=== PATIENT | male | born 1955 | race Caucasian/White ===

== ENCOUNTER 2019-02-01 23:00 | Inpatient (IN) | payer MEDICARE ==
[~2019-02-01] VITALS: Ht 177.8 cm; Wt 73.4 kg
[~2019-02-01 23:00] MED LIST: ARIP10 PO; BENADRYL PO; DIPH50 PO; DIVA500ER PO; Depakote ER500 MG PO; LEVSOD137 PO; LIDO2L PO; LOXA5 PO; NAPR500 PO; Simvastatin20 MG PO; TERA5 PO
[2019-02-01 23:52] LABS: BASOPHILS ABSOLUTE AUTO 0.02 K/mm3 (0.00-0.23); BASOPHILS PERCENT AUTO 0 % (0-2); EOSINOPHILS ABSOLUTE AUTO 0.01 K/mm3 (0.00-0.68); EOSINOPHILS PERCENT AUTO 0 % (0-6); Hematocrit 44.8 % (37.0-53.0); Hemoglobin 14.9 g/dL (13.5-17.5); IMMATURE GRAN ABSOLUTE AUTO 0.05 K/mm3 (0.00-0.10); IMMATURE GRAN PERCENT AUTO 1 % (0-1); LYMPHOCYTES ABSOLUTE AUTO 0.81 K/mm3 (0.84-5.20); LYMPHOCYTES PERCENT AUTO 9 % (21-46); MONOCYTES ABSOLUTE AUTO 0.81 K/mm3 (0.16-1.47); MONOCYTES PERCENT AUTO 9 % (4-13); Mean Corpuscular HGB Conc 33.3 g/dL (31.5-36.5); Mean Corpuscular Volume 96 fL (80-100); NEUTROPHILS ABSOLUTE AUTO 7.73 K/mm3 (1.96-9.15); NEUTROPHILS PERCENT AUTO 82 % (41-73); Platelet Count 128 K/mm3 (150-400); RDW Standard Deviation 46.2 fL (35.1-46.3); Red Blood Cell Count 4.65 M/mm3 (4.30-5.90); White Blood Cell Count 9.43 K/mm3 (4.00-11.30)
[2019-02-02 00:07] LABS: Albumin, Blood 3.2 g/dL (3.4-5.0); Albumin/Globulin Ratio 0.9 (0.8-1.8); Bilirubin, Total 1.2 mg/dL (0.1-1.0); Bun/Creatinine Ratio 29.6 (12.0-20.0); Calcium, Blood 8.1 mg/dL (8.5-10.1); Creatinine, Blood 1.62 mg/dL (0.60-1.20); Globulin, Blood 3.5 g/dL (2.2-4.0); Potassium, Blood 3.9 mmol/L (3.5-5.5); Total Protein, Blood 6.7 g/dL (6.4-8.2)
[2019-02-02] MEDS ORDERED: Benztropine Me0.5 MG PO (00:09)
[2019-02-02] MEDS ORDERED: LITH300C PO (00:10)
[2019-02-02] MEDS ORDERED: OLAN5 PO (00:11)
[2019-02-02] MEDS ORDERED: OLAN10 PO (00:11)
[2019-02-02] MEDS ORDERED: PALI6TA PO (00:12)
[2019-02-02] MEDS ORDERED: PROP10 PO (00:13)
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
[2019-02-02 08:19] LABS: Calcium, Blood 7.7 mg/dL (8.5-10.1); Creatinine, Blood 1.4 mg/dL (0.60-1.20); Potassium, Blood 3.9 mmol/L (3.5-5.5)
[2019-02-02 08:25] LABS: Lithium <0.20 mmol/L (0.60-1.20)
--- NOTE | 2019-02-02 09:17 | NUR ---
Recieved report from Rhoda PATEL. As we were giving report the patient started to amp up as i explained why he is here and stating that [facility] as he stopped eating and his electrolytes were getting worse. He kept getting out of bed wanting to leave and had to assist him several times getting back to bed.After about the tenth conversation he wanted to leave and let him walk out. Nursing blast furnace auxiliaries supervisor present and security was called. He exited and starting walking to U area yelling obsentities and security caught up with him nd he was place back in bed and bilateral soft wrist restraints were applied. We removed field start and charge nurse started RFA 20 IV. He continues to yell out at female staff. Started NS at 200ml/hr and Precedex at 0.7 mcg/kg/hr. He was up to bathroom to urinate before all this happened. He is currently quite and continues to refuse food and meds, will check on order fro possible NG. VSS
--- NOTE | 2019-02-02 12:05 | NUR ---
Patient was up out of bed with one assist to use bathroom and slightly unsteady. He went back to bed. I convinced him to drink cranberry juice and took all but colace for am meds. He still slightly confused and does not understand why he does not get to leave. talked with [facility] MD and asked for care plan or progress note for Dr Schneider. She was by and does not want any nutrition and is just manageing electrolyte and them wants [facility]ennt back to [facility]. Patient has been directable but is difficult at times.VSS Precedex continues at 0.7 mcg/kg/hr and NS at 200ml.
--- NOTE | 2019-02-02 12:45 | NUR ---
Patient removed restraints and was standing at bedside prior to video call he was out of bed. He was pulling at IV and pulled out even though I told him to stop. He keeps repeating the world is over and maintains he wants his life to end and he will starve him self. He was placed back in restraints and better secured and is quiet currently.
--- NOTE | 2019-02-02 13:53 | NUR ---
Patient has been resting and was in room removing meal that he currently refuses to eat. He follow direction with coaching. Ne IV placed in LH after when he was up he pulled RFA IV out. VSS. He is currently very flat affect. He continues on 2nd liter NS at 200ml/hr and Precedex at 0.7 mcg/kg/hr.
--- NOTE | 2019-02-02 15:30 | NUR ---
Patient has been resting. He states that he has been lying with his story and he does not want to . He remains in restraints and he still wants to get out of bed and pulls at restraints. His VS remain stable and sats on RA in the upper 90%'s. We talked for about half hour and he states will try to be better but get confused very easily and not really sure what he can believe from him self. He states will take his med as required. Reduced Precedex to 0.4 mcg/kg/hr.
[2019-02-02 15:45] LABS: Anion Gap 7 mmol/L (6-16); Blood Urea Nitrogen 38 mg/dL (8-24); Bun/Creatinine Ratio 30.4 (12.0-20.0); CO2, Blood 20 mmol/L (21-32); Calcium, Blood 7.8 mg/dL (8.5-10.1); Chloride, Blood 129 mmol/L (98-108); Creatinine, Blood 1.25 mg/dL (0.60-1.20); Glomerular Filtration Rate >60 (60-); Glucose, Blood 97 mg/dL (70-99); Sodium, Blood 156 mmol/L (136-145)
--- NOTE | 2019-02-02 20:00 | NUR ---
ASSUMED CARE OF PT AT 1915. REPORT RECEIVED. PT PRESENTS IN BED. ALERT AND DISORIENTED. HAS NOT BEEN ON PRECEDEX DRIP FOR AWHILE. PT VERY GRANDIOSE ABOUT HIM BEING RESPONSIBLE FOR THE "END OF THE UNIVERSE" ADDS THAT HE SHOULD HAVE WARNED EVERYONE SOONER. PT DOES NO REDIRECT EASILY. DID GET PT UP TO TOILET WHERE HE VOIDS Q.S. WAS INCONTINENT TO URINE IN BED. DID FIND A PLASTIC SPOON THAT WAS UNDER HIS CARL PAD. UNSURE IF PT WAS ATTEMPTING TO HIDE THIS OR INADVERTANTLY ENDED UP UNDER PAD WHILE HIS MEAL WAS PRESENT. WILL REVIEW CHART AND PLAN OF CARE FOR THIS PT.
[2019-02-02 20:18] LABS: Source, Urine Clean Catch
[2019-02-02 20:22] LABS: Bilirubin, Urine Neg (Neg); Blood, Urine Neg (Neg); Glucose Qualitative, Urine Neg (Neg); Ketones, Urine Neg (Neg); Leukocyte Esterase, Urine Neg (Neg); Nitrite, Urine Neg (Neg); Protein, Urine Neg (Neg); Specific Gravity, Urine 1.015 (1.003-1.022); Urobilinogen, Urine 2+ (Normal)
[2019-02-02 20:26] LABS: Appearance, Urine Clear (Clear); Color, Urine Amber (P-Yellow)
--- NOTE | 2019-02-02 23:43 | NUR ---
PT CONTINUED BEING FIXATED ON THE UNIVERSE, AND HOW IT IS ENDING. STATES THAT HE HAS BEEN AROUND FOR "BILLIONS OF YEARS" ATTEMPT TO REDIRECT PT SOMEWHAT UNSUCESSFUL. DID GET PT TO DRINK A CUP OF CRANDBERRY JUICE, BUT WHEN IT CAME TIME FOR HIS HS MEDS HE WOULD CLINCH HIS TEETH AND WOULD NOT TAKE HIS MEDICATIONS. ATTEMPTED TO EDUCATE PT WHY IT WAS IMPROTANT FOR HIM TO TAKE HIS MEDICATIONS WAS UNSUCCESSFUL. DID CALL DR YOUNG AND RECEIVED ORDER FOR HIS ZYPREXA TO BE GIVEN IM IF HE REFUSED TO TAKE ORAL. PT RECEIVED 10 MG ZYPREXA IM IN LEFT DELTOID. ALSO OF NOTE: PT HAS BEEN ATTEMPTING TO SPIT ON STAFF IF THEY GOT CLOSE TO HIM. PLACED ISOLATION MASK ON PT TO PREVENT HIM FROM SPITTING. PT DID LATER REQUEST FOR MASK TO BE REMOVED GIVING WORD THAT HE WOULD NOT ATTEMPT TO SPIT ON STAFF. WHEN AFTER HE RECEIVED IM ZYPREXA, PT STATED HE WOULD TAKE HIS LITHIUM IF HE COULD HAVE MASK OFF. THEN WHEN MASK REMOVED HE REFUSED. WHEN ADDRESSING PT ON HIM GIVING HIS WORD HE RELUCTANTLY TOOK HIS LITHIUM. PT CURRENTLY RESTING IN BED. HAVE NOTICED PT HAS TREMORS IN HANDS AND ARMS. WHEN PT MORE APT TO TAKE PO MEDS WILL OFFER COGENTIN FOR EXTRAPARMYTAL SYMPTOMS.
--- NOTE | 2019-02-03 03:42 | NUR ---
PT HAVING LESS GRANDIOSE TYPE CONVERSATIONS. PT OUT OF BED WITH RN ASSIST AND AMBULATES TO TOILET. VOIDS Q.S. WHEN BACK IN BED HE REFUSES SHEET OR BLANKETS. "I DON'T DESERVE BLANKETS" IS VERY ADAMENT ABOUT NOT HAVING BEDDING.
[2019-02-03 05:48] LABS: Albumin, Blood 2.7 g/dL (3.4-5.0); Anion Gap 6 mmol/L (6-16); Blood Urea Nitrogen 26 mg/dL (8-24); Bun/Creatinine Ratio 22.8 (12.0-20.0); CO2, Blood 24 mmol/L (21-32); Calcium, Blood 8.1 mg/dL (8.5-10.1); Chloride, Blood 123 mmol/L (98-108); Creatinine, Blood 1.14 mg/dL (0.60-1.20); Glomerular Filtration Rate >60 (60-); Glucose, Blood 113 mg/dL (70-99); Phosphorus, Blood 2.5 mg/dL (2.5-4.9); Sodium, Blood 153 mmol/L (136-145)
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
--- NOTE | 2019-02-03 12:10 | NUR ---
PT UPDATE: PT CURSING LOUDLY. WENT TO ROOM TO CHECK ON PT AND ASK IF HE HAD ANY NEEDS. PT REPORTS HE NEEDS TO BE TAKEN OUT OF RESTRAINTS, BECAUSE THE WORLD IS ENDING AND HE CAN'T HELP STOP IT. WHEN ARRIVING TO IMMEDIATLY AFTER HEARING PT CURSING. PT WAS FOUND WITH HIS EYES CLOSED, RELAXED FACE, AND NO BODY SHAKING. HOWEVER, ONCE PT WAS AWARE STAFF WAS IN THE ROOM, PT'S UE'S START SHAKING CONSTANTLY AND PT STATES, "I'M LOSING CONTROL OF MY BODY!" PT UNABLE TO EXPLAIN WHAT HE MEANT BY THIS STATEMENT, AND THEN QUICKLY FALLS ASLEEP AND BILATERAL UE SHAKING CEASES, ONCE THIS RN STOPPED CONVERSING W/PT.
--- NOTE | 2019-02-03 13:25 | NUR ---
PT HAD VOIDED INCONT. IN BED AND SOMEWHAT RESISTIVE WITH CLEANUP/BATH BUT NOT COMBATIVE. LEFT ALONE, PT RETURNED TO NAPPING/SLEEPING REST. VS NOTED AND UNWILLING TO CONSIDER MORE PO MEDS AT THIS TIME OR JUST PO FLUID. GROIN FOLDS RED, CLEANED AND LOTION APPLIED, NO BREAKDOWN.
--- NOTE | 2019-02-03 13:32 | NUR ---
PT GOIING FROM CALM AND SEEMINGLY SLEEPING TO "I WANT OUT OF HERE, MY FRIENDS WILL SEE ME". ABLE AT THIS POINT TO VERBALLY COAL DRIER OPERATOR TO RELAX AND BE CALM.
[2019-02-03 14:20] LABS: Albumin, Blood 2.7 g/dL (3.4-5.0); Anion Gap 6 mmol/L (6-16); Blood Urea Nitrogen 19 mg/dL (8-24); Bun/Creatinine Ratio 18.4 (12.0-20.0); CO2, Blood 23 mmol/L (21-32); Chloride, Blood 119 mmol/L (98-108); Creatinine, Blood 1.03 mg/dL (0.60-1.20); Glomerular Filtration Rate >60 (60-); Glucose, Blood 149 mg/dL (70-99); Phosphorus, Blood 1.6 mg/dL (2.5-4.9); Potassium, Blood 3.3 mmol/L (3.5-5.5); Sodium, Blood 148 mmol/L (136-145)
--- NOTE | 2019-02-03 15:46 | NUR ---
KCL RIDER STARTED AND WILL MONITOR FOR IRRITATION OF SITE. PT AWOKE WHEN ENTERED ROOM BUT NOT VERBAL AT THIS TIME.
--- NOTE | 2019-02-03 18:19 | NUR ---
PT HAS BEEN RESTING MOST OF THIS PM W/O EMOTIONAL DISTRESS. PT AGREES THEN DECLINES TO SPEAK TO TELE-PSYCH... WILL FOLLOW. ASSESSMENT TIME PENDING. VS NOTED. PT HAS REFUSED FOOD AND DRINK THIS PM OR ANY PRN MEDS. PT HAS BEEN GETTING UP TO BSC TO VOID SITTING DOWN THEN 1 PERSON DIRECTED BACK TO BED. D5W IS DECREASED TO 100ML AND KCL RIDER CONT TO INFUSE. NO ANSWER TO QUESTION OF WANTING TO TAKE HIS LIFE JUST THAT HE HAS NO MONEY AND TO LATE TO START OVER.
--- NOTE | 2019-02-03 18:45 | NUR ---
TELEPSYCH CONFERANCE COMPLETED. ASSUMING RESULTS AND RECOMMENDATIONS TO FOLLOW.
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
--- NOTE | 2019-02-03 22:35 | NUR ---
PATIENT PUSHING HAND AWAY AND TURNING HEAD AWAY WHEN PO OFFERED. ATTEMPT TO GET PATIENT UP TO TOILET AND HE SAT UP ON TO THE SIDE OF THE BED AND THEN LAYING BACK DOWN. PATIENT AGAIN OFFERED WATER AND THE OPTION TO TAKE HIS MEDICATIONS BY MOUTH. PATIENT ONLY VERBAL RESPONSE WAS "YOU DON'T UNDERSTAND" AND "THE WORLD IN COMING TO AN END" AND ALSO SAYING THAT BECAUSE OF WHAT HE HAS DONE THERE WILL BE NO SECOND COMING. DUE TO PATIENT NOT TAKING PO MEDICATIONS PATIENT GIVEN IM ZYPREXA.
[2019-02-04 03:47] LABS: Anion Gap 7 mmol/L (6-16); Blood Urea Nitrogen 13 mg/dL (8-24); CO2, Blood 22 mmol/L (21-32); Calcium, Blood 8.5 mg/dL (8.5-10.1); Chloride, Blood 118 mmol/L (98-108); Creatinine, Blood 1.08 mg/dL (0.60-1.20); Glomerular Filtration Rate >60 (60-); Glucose, Blood 124 mg/dL (70-99); Phosphorus, Blood 3.1 mg/dL (2.5-4.9); Potassium, Blood 3.7 mmol/L (3.5-5.5); Sodium, Blood 147 mmol/L (136-145)
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
--- NOTE | 2019-02-04 07:44 | NUR ---
ASSUMED CARE: ACCOUNTING POLICY CONSULTANT ASSISTED PT TO BSC AND BACK TO BED. BILATERAL WRIST RESTRAINTS IN PLACE. PT APPEARS PLEASANT AT THIS TIME. HOLD LIGHT IN PLACE. NO ACUTE NEEDS OR CONCERNS NOTED AT THIS TIME
[2019-02-04 09:37] LABS: Anion Gap 7 mmol/L (6-16); Blood Urea Nitrogen 12 mg/dL (8-24); Bun/Creatinine Ratio 11.5 (12.0-20.0); CO2, Blood 24 mmol/L (21-32); Calcium, Blood 8.4 mg/dL (8.5-10.1); Chloride, Blood 115 mmol/L (98-108); Creatinine, Blood 1.04 mg/dL (0.60-1.20); Glomerular Filtration Rate >60 (60-); Glucose, Blood 104 mg/dL (70-99); Potassium, Blood 3.8 mmol/L (3.5-5.5); Sodium, Blood 146 mmol/L (136-145)
--- NOTE | 2019-02-04 16:37 | NUR ---
PT'S IV DC'D WNL. OUT OF RESTRAINTS SINCE 1430. REPORT CALLED TO JORGE CHOI WHO STATES SHE WAS FAMILIAR WITH PT. [facility] CAME TO COLLECT PT AND WAS AWARE HE WAS NEEDING SECURE TRANSFER. NO FURTHER NEEDS OR CONCERNS NOTED
== END 2019-02-04 16:36 | DRG 683 ==
LOC: ER 23:00 → ERHOLD 23:01 → ICUE 23:01 → ERHOLD 02-02 06:06 → ICUE 02-02 06:06 → ERHOLD 02-03 13:18 → ICUE 02-03 13:19
PROVIDERS: Emergency Medicine; Internal Medicine; ADMIT Hospitalist
DX: N17.9 Acute kidney failure, unspecified (principal); G21.19 Other drug induced secondary parkinsonism; R45.851 Suicidal ideations; E87.0 Hyperosmolality and hypernatremia; E86.0 Dehydration; I25.10 Atherosclerotic heart disease of native coronary artery without angina pectoris; N40.0 Benign prostatic hyperplasia without lower urinary tract symptoms; E78.5 Hyperlipidemia, unspecified; Z87.891 Personal history of nicotine dependence; E03.9 Hypothyroidism, unspecified; F29 Unspecified psychosis not due to a substance or known physiological condition; M19.90 Unspecified osteoarthritis, unspecified site; D64.9 Anemia, unspecified
CPT/HCPCS: 36415; 80048; 80053; 80069; 80178; 81003; 85025; 96360; 96361; 96365; 96366; 96372; 99285-25; G0378; J1650; J3480; J7030; J7060; J7070